=== PATIENT | female | born 1990 | race Caucasian/White ===

== ENCOUNTER → 2016-10-19 | Outpatient (CLI) | payer MEDICAID ==
[2016-10-19 15:09] LABS: HIV12 AG/AB 4TH GEN W/REFLEX 0.2 (<1.0)
== END ==
LOC: MW.CHOBGYN 14:00
PROVIDERS: ATTEND Advanced Practice Midwife
DX: Z11.3 Encounter for screening for infections with a predominantly sexual mode of transmission (principal); A74.9 Chlamydial infection, unspecified; N94.10 Unspecified dyspareunia
CPT/HCPCS: 36415; 80074; 84146; 86592; 87389; 87480; 87491; 87510; 87591; 87660

== ENCOUNTER → 2016-11-02 | Outpatient (CLI) | payer MEDICAID | LOC: MW.CHOBGYN 16:13 | PROVIDERS: ATTEND Advanced Practice Midwife | DX: N94.10 Unspecified dyspareunia (principal) | CPT/HCPCS: 81003 ==

== ENCOUNTER 2017-08-25 01:00 | Emergency (ER) | payer MEDICAID ==
[2017-08-25] MEDS ORDERED: Diphtheria,Pertussis(Acell),Tetanus Vaccine 0.5 ML Syringe IM ONE (01:05)
[2017-08-25] MEDS ORDERED: Lidocaine 1% 20 ML MDV INJECT ONE (01:06)
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
[2017-08-25] MEDS ORDERED: Bacitracin Oint 1 GM U/D Packet TOP ONE (01:12)
[2017-08-25 01:36] VITALS: BP 112/81
== END 2017-08-25 01:37 | disposition home or self-care (01) ==
LOC: MW.ED 01:00
DX: S51.012A Laceration without foreign body of left elbow, initial encounter (principal); Z23 Encounter for immunization; W45.8XXA Other foreign body or object entering through skin, initial encounter
CPT/HCPCS: 12001; 90471; 90715; 99282; 99282-25

== ENCOUNTER 2017-10-30 14:05 | Emergency (ER) | payer MEDICAID ==
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
[2017-10-30 15:03] VITALS: BP 102/55
== END 2017-10-30 14:59 | disposition home or self-care (01) ==
LOC: MW.ED 14:05
DX: L03.114 Cellulitis of left upper limb (principal)
CPT/HCPCS: 99283

== ENCOUNTER 2017-12-19 23:39 | Emergency (ER) | payer MEDICAID ==
[2017-12-20] MEDS ORDERED: LORazepam 0.5 MG Tab PO ONE
[2017-12-20] MEDS ORDERED: Ondansetron 4 MG Tab.DIS PO ONE
[2017-12-20 00:02] VITALS: BP 121/69
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
--- NOTE | 2017-12-20 11:42 | CR ---
EXAM DATE: 12/19/17 PATIENT'S AGE: 27 Patient: DAPHNE ROYAL Facility: [place], [place] Site . Site : 1990 Study: XRay Chest [id number]/[id number] 12:38:57 AM Ordering Physician: Liliana Mera Final Report: INDICATION: Shortness of breath TECHNIQUE: Chest 2 views. COMPARISON: None FINDINGS: Cardiovascular and mediastinum: Heart size and vasculature are normal in caliber and appearance. Mediastinum is within normal limits. Lungs and pleural spaces: Lungs are clear. No sign of infiltrate. Probable 4 millimeter calcified granuloma left upper lobe. No sign of pleural effusion. No pneumothorax. Bones and soft tissues: No significant findings. IMPRESSION: Unremarkable chest. Dictated by Luis Carlos Agustin MD @ 12/20/2017 12:45:33 AM Dictated by: Luis Carlos Agustin MD @ 12/20/2017 00:45:39 (Electronic Signature) Report Signed by Proxy. KADEN
== END 2017-12-20 01:08 | disposition home or self-care (01) ==
LOC: MW.ED 23:39
DX: F41.1 Generalized anxiety disorder (principal); R07.89 Other chest pain
CPT/HCPCS: 71046; 93005; 99284; A9270

== ENCOUNTER 2018-01-15 16:57 | Emergency (ER) | payer MEDICAID ==
[2018-01-15] MEDS ORDERED: LORazepam 2 MG/ML SDV IVPUSH ONE (16:58)
[2018-01-15] MEDS ORDERED: Sodium Chloride 0.9% 1,000 ML IV ONE (16:58)
--- NOTE | 2018-01-15 17:04 | EDM.PDOC ---
ED HPI GENERAL MEDICAL PROBLEM - General Stated Complaint: BREATHING PROBLEMS Time Seen by Provider: 01/15/18 16:59 Source of Information: Reports: Patient History Limitations: Reports: No Limitations - History of Present Illness INITIAL COMMENTS - FREE TEXT/NARRATIVE: HISTORY AND PHYSICAL: History of present illness: Patient is a 27-year-old female who presents to the emergency room with complaints of dyspnea and increased anxiety. She was cleaning with some household cleaning products, and became concerned as she thought she smelled "fumes". Her anxiety "took over" and she was unable to calm herself down. She proceeded to take a sister's prescribed Xanax but the medication "didn't help" so they called EMS to transport this patient for evaluation. Upon patient arrival she is tachypneic and appears anxious. Her and son are at the bedside. EMS did give her a duo neb prior to arrival. Review of systems: As per history of present illness and below otherwise all systems reviewed and negative. Past medical history: As per history of present illness and as reviewed below otherwise noncontributory. Surgical history: As per history of present illness and as reviewed below otherwise noncontributory. Social history: No reported history of drug or alcohol abuse. Family history: As per history of present illness and as reviewed below otherwise noncontributory. Physical exam: General: Well-developed and well-nourished 27-year-old female. Alert and oriented. Nontoxic appearing and in no acute distress. HEENT: Atraumatic, normocephalic, pupils equal and reactive bilaterally, negative for conjunctival pallor or scleral icterus, mucous membranes moist, throat clear, neck supple, nontender, trachea midline. No drooling or trismus noted. No meningeal signs Lungs: Clear to auscultation, breath sounds equal bilaterally, chest nontender. Heart: S1S2, regular rate and rhythm without overt murmur Abdomen: Soft, nondistended, nontender. Negative for masses or hepatosplenomegaly. Negative for costovertebral tenderness. Pelvis: Stable nontender. Genitourinary: Deferred. Rectal: Deferred. Skin: Intact, warm, dry. No lesions or rashes noted. Extremities: Atraumatic, negative for cords or calf pain. Neurovascular unremarkable. Neuro: Awake, alert, oriented. Cranial nerves II through XII unremarkable. Cerebellum unremarkable. Motor and sensory unremarkable throughout. Exam nonfocal. Notes: After some coaching the patient is calm at this point vital signs are stable. Patient reports that she feels that the Xanax she took previously has "kicked in ". Zofran and fluids at this time. Routine lab work is being done. Labs are unremarkable, with the exception of low potassium. KDur given here with education to patient. Supportive care measures were reviewed and discussed. She is agreeable denies any further questions or concerns at this time. Diagnostics: CBC, CMP Therapeutics: NS Impression: Anxiety Hypokalemia Plan: 1. Please rest the remainder of the day. The medication you had received prior to arrival does cause drowsiness a do not drive today. 2. Please follow-up with the primary caregiver in the next 1-2 days. Please have your potassium rechecked in the next few weeks. Increase foods rich in potassium in your diet 3. Return to the ED as needed and as discussed. Definitive disposition and diagnosis as appropriate pending reevaluation and review of above. - Related Data Allergies Allergy/AdvReac Type Severity Reaction Status Date / Time No Known Allergies Allergy Verified 12/19/17 23:56 Home Meds: Home Meds Control 12/20/17 [History] Past Medical History HEENT History: Reports: None Cardiovascular History: Reports: Other (See Below) Other Cardiovascular History: Spouse reports history of Hypotension Respiratory History: Reports: None Gastrointestinal History: Reports: None Genitourinary History: Reports: None MAKER UP FOLDING History: Reports: Other MAKER UP FOLDING History: Current demise at 10 weeks gestation Musculoskeletal History: Reports: None Neurological History: Reports: None Psychiatric History: Reports: Other (See Below) Other Psychiatric History: reports has had times of depression, he states he feels she would reach out if needed, He states he is attentive and would find others to watch her if he felt it was warranted when he is away,'she has stated thoughts of harming self in past' Endocrine/Metabolic History: Reports: None Hematologic History: Reports: None Other Hematologic History: Reports current flow, diagnosis Demiss at 10 weeks gestation Immunologic History: Reports: None Oncologic (Cancer) History: Reports: None Dermatologic History: Reports: None - Infectious Disease History Infectious Disease History: Reports: None - Past Surgical History Head Surgeries/Procedures: Reports: None Female Surgical History: Reports: Section Social & Family History - Family History Family Medical History: Noncontributory - Caffeine Use Caffeine Use: Reports: None ED ROS GENERAL - Review of Systems Review Of Systems: ROS reveals no pertinent complaints other than HPI. ED EXAM, GENERAL - Physical Exam Exam: See Below (See dictation) Course - Vital Signs Last Recorded V/S: Last Vital Signs Temp 98.3 F 01/15/18 17:06 Pulse 86 01/15/18 17:06 Resp 22 H 01/15/18 17:06 BP 142/65 H 01/15/18 17:06 Pulse Ox 99 01/15/18 17:06 - Orders/Labs/Meds Orders: Active Orders 24 hr Category Date Time Status Potassium Chloride [Klor-Con M20] Med 01/15/18 17:43 Once 20 meq PO ONETIME ONE Sodium Chloride 0.9% [Normal Saline] 1,000 ml Med 01/15/18 16:58 Active IV STAT Medication Orders Sodium Chloride (Normal Saline) 1,000 mls @ 999 mls/hr IV STAT ONE Stop: 01/15/18 17:58 Last Admin: 01/15/18 17:11 Dose: 999 mls/hr Labs: Laboratory Tests 01/15/18 01/15/18 Range/Units 16:47 16:47 WBC 10.02 (4.0-11.0) K/uL RBC 4.82 (4.30-5.90) M/uL Hgb 15.0 (12.0-16.0) g/dL Hct 43.0 (36.0-46.0) % MCV 89.2 (80.0-98.0) fL MCH 31.1 (27.0-32.0) pg MCHC 34.9 (31.0-37.0) g/dL RDW Std Deviation 41.5 (28.0-62.0) fl RDW Coeff of Karl 13 (11.0-15.0) % Plt Count 198 (150-400) K/uL MPV 10.50 (7.40-12.00) fL Neut % (Auto) 50.6 (48.0-80.0) % Lymph % (Auto) 40.9 H (16.0-40.0) % Angelina % (Auto) 6.2 (0.0-15.0) % Eos % (Auto) 2.1 (0.0-7.0) % Baso % (Auto) 0.2 (0.0-1.5) % Neut # (Auto) 5.1 (1.4-5.7) K/uL Lymph # (Auto) 4.1 H (0.6-2.4) K/uL Angelina # (Auto) 0.6 (0.0-0.8) K/uL Eos # (Auto) 0.2 (0.0-0.7) K/uL Baso # (Auto) 0.0 (0.0-0.1) K/uL Nucleated RBC % 0.0 /100WBC Nucleated RBCs # 0 K/uL Sodium 138 (136-145) mmol/L Potassium 3.2 L (3.5-5.1) mmol/L Chloride 104 (98-107) mmol/L Carbon Dioxide 19.0 L (21.0-32.0) mmol/L BUN 16 (7.0-18.0) mg/dL Creatinine 1.0 (0.6-1.0) mg/dL Est Cr Clr Drug Dosing TNP Estimated GFR (MDRD) > 60.0 ml/min Glucose 93 (74-106) mg/dL Calcium 9.1 (8.5-10.1) mg/dL Total Bilirubin 0.5 (0.2-1.0) mg/dL AST 13 L (15-37) IU/L ALT 8 L (14-63) IU/L Alkaline Phosphatase 81 (46-116) U/L Total Protein 7.4 (6.4-8.2) g/dL Albumin 3.9 (3.4-5.0) g/dL Globulin 3.5 (2.0-3.5) g/dL Albumin/Globulin Ratio 1.1 L (1.3-2.8) Meds: Medications Generic Name Dose Route Start Last Admin Trade Name Freq PRN Reason Stop Dose Admin Sodium Chloride 1,000 mls @ 999 mls/hr 01/15/18 16:58 01/15/18 17:11 Normal Saline IV 01/15/18 17:58 999 mls/hr STAT ONE Administration Discontinued Medications Generic Name Dose Route Start Last Admin Trade Name Freq PRN Reason Stop Dose Admin Lorazepam 0.5 mg 01/15/18 16:58 Ativan IVPUSH 01/15/18 16:59 ONETIME ONE Ondansetron HCl 4 mg 01/15/18 17:07 01/15/18 17:42 Zofran IVPUSH 01/15/18 17:08 4 mg ONETIME ONE Administration Departure - Departure Time of Disposition: 17:45 Disposition: Home, Self-Care 01 Clinical Impression: Anxiety - Discharge Information Instructions: Panic Attack, [id number] Referrals: PCP,None [Primary Care Provider] - Additional Instructions: The following information is given to patients seen in the emergency department who are being discharged to home. This information is to outline your options for follow-up care. We provide all patients seen in our emergency department with a follow-up referral. The need for follow-up, as well as the timing and circumstances, are variable depending upon the specifics of your emergency department visit. If you don't have a primary care physician on staff, we will provide you with a referral. We always advise you to contact your personal physician following an emergency department visit to inform them of the circumstance of the visit and for follow-up with them and/or the need for any referrals to a consulting specialist. The emergency department will also refer you to a specialist when appropriate. This referral assures that you have the opportunity for follow-up care with a specialist. All of these measure are taken in an effort to provide you with optimal care, which includes your follow-up. Under all circumstances we always encourage you to contact your private physician who remains a resource for coordinating your care. When calling for follow-up care, please make the office aware that this follow-up is from your recent emergency room visit. If for any reason you are refused follow-up, please contact the [facility] Emergency Department at and asked to speak to the emergency department charge nurse. [facility] [address] [place] [id number] 1. Please rest the remainder of the day. The medication you had received prior to arrival does cause drowsiness a do not drive today. 2. Please follow-up with the primary caregiver in the next 1-2 days. Please have your potassium rechecked in the next few weeks. Increase foods rich in potassium in your diet 3. Return to the ED as needed and as discussed. - My Orders Last 24 Hours: My Active Orders 01/15/18 16:58 Sodium Chloride 0.9% [Normal Saline] 1,000 ml IV STAT 01/15/18 17:43 Potassium Chloride [Klor-Con M20] 20 meq PO ONETIME ONE - Assessment/Plan Last 24 Hours: My Active Orders 01/15/18 16:58 Sodium Chloride 0.9% [Normal Saline] 1,000 ml IV STAT 01/15/18 17:43 Potassium Chloride [Klor-Con M20] 20 meq PO ONETIME ONE
[2018-01-15] MEDS ORDERED: Ondansetron 4 MG/2 ML SDV IVPUSH ONE (17:07)
[2018-01-15 17:39] LABS: CHLORIDE,CL 104 mmol/L (98-107); SODIUM,NA 138 mmol/L (136-145)
[2018-01-15] MEDS ORDERED: Potassium Chloride 20 MEQ Tab.ER PO ONE (17:43)
[2018-01-15 18:19] VITALS: BP 107/63
== END 2018-01-15 18:17 | disposition home or self-care (01) ==
LOC: MW.ED 16:57
DX: F41.9 Anxiety disorder, unspecified (principal); E87.6 Hypokalemia
CPT/HCPCS: 80053; 85025; 96361; 96374; 96375; 99285; A9270; J2405; J7040